=== PATIENT | female | born 1970 | race Caucasian/White ===

== ENCOUNTER 2018-12-20 15:40 | Emergency (ER) | payer SELFPAY ==
[2018-12-20] MEDS ORDERED: Morphine 10 MG/ML VIAL ONE (16:21)
[2018-12-20] MEDS ORDERED: Cyclobenzaprine 10 MG TAB ONE (16:21)
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
[2018-12-20] MEDS ORDERED: Ondansetron ODT 8 MG TAB ONE (17:18)
== END 2018-12-20 17:22 | disposition home or self-care (01) ==
LOC: ERS 15:40
DX: S39.012A Strain of muscle, fascia and tendon of lower back, initial encounter (principal); W19.XXXA Unspecified fall, initial encounter; Y93.02 Activity, running
CPT/HCPCS: 72100; 96372; J2270

== ENCOUNTER 2019-01-13 16:49 | Emergency (ER) | payer SELFPAY ==
[2019-01-13] MEDS ORDERED: Ketorolac Tromethamine 30 MG/ML VIAL ONE (17:51)
== END 2019-01-13 18:13 | disposition home or self-care (01) ==
LOC: ERS 16:49
DX: M25.512 Pain in left shoulder (principal); M54.2 Cervicalgia
CPT/HCPCS: 96372; 99283; J1885

== ENCOUNTER 2020-09-05 18:14 | Emergency (ER) | payer OTHER ==
[2020-09-05] MEDS ORDERED: Lidocaine 1% (PF) 30 ML VIAL ONE (18:41)
== END 2020-09-05 19:20 | disposition home or self-care (01) ==
LOC: ERS 18:14
DX: N76.4 Abscess of vulva (principal)
CPT/HCPCS: 56405; J2001

== ENCOUNTER 2021-04-15 15:30 | Emergency (ER) | payer SELFPAY ==
[2021-04-15] MEDS ORDERED: Lorazepam 1 MG TAB ONE (16:15)
[2021-04-15 23:37] LABS: SARS-CoV-2 PCR by NAA DETECTED (NotDetected)
== END 2021-04-15 16:41 | disposition home or self-care (01) ==
LOC: ERS 15:30
DX: U07.1 COVID-19 (principal)
CPT/HCPCS: 87804; 99284; U0003; U0005

== ENCOUNTER 2024-04-17 13:15 | Emergency (ER) | payer SELFPAY | END 2024-04-17 13:45 | LOC: ERS 13:15 | DX: R56.9 Unspecified convulsions (principal) | CPT/HCPCS: 99284 ==